=== PATIENT | female | born 1945 | race Caucasian/White ===

== ENCOUNTER 2022-04-21 13:27 | Emergency (ER) | payer MEDICARE, SELFPAY ==
--- NOTE | ~2022-04-21 | CT_ITS ---
Moderate EXAMINATION: CT HEAD WITHOUT CONTRAST CT CERVICAL SPINE WITHOUT CONTRAST CLINICAL INFORMATION: Fall. COMPARISON: None available. TECHNIQUE: Contiguous axial imaging was performed from the skull base to vertex without intravenous administration of contrast. Contiguous axial imaging was performed from the upper chest through the skull base without intravenous administration of contrast. Coronal and sagittal reformats were obtained at the acquisition workstation. This CT examination was performed using dose optimization techniques as appropriate, variously including the following: *Automated exposure control. *Adjustment of mA and/or kV according to patient size (this includes techniques or standardized protocols for targeted exams where dose is matched to indication/reason for exam; i.e. extremities or head). *Use of iterative reconstruction technique. DLP: 1007 mGy-cm FINDINGS: Head: There is no evidence of acute intracranial hemorrhage or edematous territorial infarction. Oneill-white matter differentiation is preserved. A few foci of hypoattenuation in the periventricular and deep white matter are consistent with mild to moderate microangiopathy. Proportional prominence of the ventricles and sulcal spaces without evidence of obstructive hydrocephalus. No abnormal mass effect or midline shift. No extra-axial fluid collections. Calcific atherosclerotic disease of the intracranial internal carotid and vertebral arteries. No hyperdense vessel sign. No acute soft tissue or osseous abnormalities. Moderate mucosal thickening of the paranasal sinuses. The mastoid air cells and middle ear cavities are clear. Advanced left-sided and moderate right-sided degenerative arthropathy of the temporomandibular joints. Cervical Spine: Instrumented anterior fusion of C3-C7. The atlantooccipital and atlantoaxial articulations remain well aligned moderate degenerative arthropathic changes. Straightening of the normal cervical lordosis. Otherwise, there is anatomic alignment of the vertebral bodies and posterior elements. No evidence of acute fracture or subluxation. The vertebral body heights and disc spaces are maintained. There is no prevertebral soft tissue swelling. The thyroid gland and remaining cervical soft tissues are normal in appearance. Calcified pleural plaques along the bilateral lung apices. CT/CT cervical spine wo IV con IMPRESSION: 1. No evidence of acute intracranial hemorrhage or edematous territorial infarction. 2. No evidence of acute fracture or traumatic subluxation of the cervical spine. 3. Mild to moderate underlying microangiopathy and generalized cerebral volume loss. 4. Instrumented anterior fusion of C3-C7. Moderate multilevel degenerative spondyloarthropathy of the cervical spine.
--- NOTE | ~2022-04-21 | XR_ITS ---
EXAMINATION: XR HIP, LEFT , AP pelvis CLINICAL INFORMATION: Fall pain COMPARISON: None available at the time of this dictation. TECHNIQUE: Frontal and lateral views of the hip acquired. , AP pelvis FINDINGS: There is no evidence of acute fracture or dislocation. There are mild degenerative arthritic changes of the hip evident by sclerotic changes of the acetabular roof and narrowing of the joint space. Mild degenerative changes of the symphysis pubis. Mild degenerative changes of the SI joints. Adjacent pubic rami are intact. Surrounding soft tissues are unremarkable. XR/XR hip LT w PEL1V IMPRESSION: No fracture. Degenerative osteoarthritis. Normal radiograph does not entirely exclude the possibility of hip fracture or bone contusions. If there is high clinical suspicion or if patient symptoms persist for longer period, then MRI might be utilized for further investigation.
--- NOTE | 2022-04-21 13:49 | ED.FALL ---
HPI - Fall General Chief Complaint: Fall Stated Complaint: LLE PAIN S/P FALL,+CCOLLAR Time Seen by Provider: 04/21/22 13:34 Source: patient Mode of arrival: EMS History of Present Illness HPI Narrative: 76-year-old female brought in by EMS who had an unwitnessed fall, she has baseline dementia and confusion, patient reports left-sided hip pain but otherwise denies any chest wall pain or abdominal pain on palpation. Related Data Allergies Allergy/AdvReac Type Severity Reaction Status Date / Time Bisphosphonates Allergy Unknown UNKNOWN Unverified 01/05/20 18:57 [BISPHOSPHONATES] carbamazepine [From TEGRETOL] Allergy Unknown UNKNOWN Unverified 01/05/20 18:57 cephalexin [From KEFLEX] Allergy Unknown UNKNOWN Unverified 01/05/20 18:57 clopidogrel [CLOPIDOGREL] Allergy Unknown UNKNOWN Unverified 01/05/20 18:57 cyclobenzaprine Allergy Unknown UNKNOWN Unverified 01/05/20 18:57 [CYCLOBENZAPRINE] ethylenediamine Allergy Unknown UNKNOWN Unverified 01/05/20 18:57 [ETHYLENEDIAMINE] ibuprofen [From MOTRIN] Allergy Unknown UNKNOWN Unverified 01/05/20 18:57 Iodinated Contrast Media Allergy Unknown UNKNOWN Unverified 01/05/20 18:57 [IODINATED CONTRAST- ORAL AND IV DYE] sulfamethoxazole Allergy Unknown UNKNOWN Unverified 01/05/20 18:57 [From BACTRIM] Tricyclic Antidepressants Allergy Unknown UNKNOWN Unverified 01/05/20 18:57 and Tricy [TRICYCLIC COMPOUNDS] trimethoprim [From BACTRIM] Allergy Unknown UNKNOWN Unverified 01/05/20 18:57 Review of Systems Review of Systems: Pertinent positives and negatives as stated in HPI. [facility] Past Medical History Source: nursing notes reviewed Social History Social History Alcohol intake: unknown Smoked in Last 30 Days: No Use of substances other than those prescribed or required for medical reasons: No Advance Directives: Yes Advance Directives Information Provided: No Advance Directives on File: No Physical Exam Vital Signs: Vital Signs: Last Vital Signs Pulse 54 04/21/22 16:06 Resp 14 04/21/22 16:06 BP 125/57 L 04/21/22 16:06 Pulse Ox 100 04/21/22 16:06 O2 Del Method 04/21/22 16:06 BMI result Body Mass Index 24.0 VITAL SIGNS: Reviewed. GENERAL: Well developed, well nourished, in no acute distress. HEAD: Normocephalic/atraumatic, EYES: PERRLA, EOMI intact without pain, no nystagmus/pallor/icterus noted EARS: Ext canals without abnormality, TMs non-bulging and non-erythematous NOSE: Nares patent bilateral OROPHARYNX: no oral lesions noted, posterior pharynx clear NECK: C-collar in place, no midline cervical spine tenderness LUNGS: Normal breath sounds. No adventitious sounds or accessory muscle use. SpO2<100> CARDIOVASCULAR: Regular rate and rhythm without noted murmurs ABDOMEN: Soft, non-tender, non-distended with bowel sounds. PELVIS: Pain at left hip but no noted external rotation or shortening MUSCULOSKELETAL: No tenderness, deformities, or effusions noted on gross inspection. EXTREMITIES: No cyanosis, clubbing or edema. SKIN: Inspection of the skin reveals no rashes NEUROLOGIC: Alert and oriented x 2. Strength and sensation to light touch were grossly intact x 4. Medical Decision Making Medical Decision Making [facility] Narrative: 76-year-old female is here in the ER to be evaluated for and ?unwitnessed fall?. 1736: On review of all investigations, there is no evidence of acute infection and anemia appears to be chronically stable, there are no acute electrolyte or renal derangements, viral testing is negative and CT of the head/C-spine is without acute findings. 1827: Pelvic x-ray is negative for fractures and patient is otherwise discharged back to her facility. Differential Diagnosis Differential Diagnoses: The differential diagnosis associated with the presentation includes I will rule out infection, anemia, electrolyte/renal dysfunction, arrhythmia Lab Data [facility] Lab Attestation statement: I reviewed the patient's lab results. Please see the discussion above Result Diagrams: 04/21/22 14:24 04/21/22 14:24 Labs: Lab Results 04/21/22 04/21/22 04/21/22 Range/Units 14:24 14:24 14:24 WBC 4.0 L (4.8-10.8) X10*3/uL RBC 3.86 L (4.20-5.50) X10*6/uL Hgb 11.9 L (12.0-16.0) g/dl Hct 35.0 L (37.0-47.0) % MCV 90.7 (80.0-98.0) fL MCH 30.8 (27.0-33.0) pg MCHC 34.0 (31.0-35.0) g/dl RDW 12.8 (11.0-16.0) % Plt Count 174 (160-400) X10*3/uL MPV 10.4 (9.4-12.3) fL Immature Gran % (Auto) 0.3 (0.0-0.4) % Neut % (Auto) 44.5 L (45-73) % Lymph % (Auto) 41.0 H (20-40) % [place] % (Auto) 10.4 (2-11) % Eos % (Auto) 3.3 (0-4) % Baso % (Auto) 0.5 (0-2) % Lymph # (Auto) 1.6 (1.2-4.9) X10*3/uL [place] # (Auto) 0.4 (0.1-1.2) X10*3/uL Eos # (Auto) 0.1 (0.0-0.4) X10*3/uL Baso # (Auto) 0.0 (0.0-0.2) X10*3/uL Abs Immat Gran (auto) 0.01 (0.00-0.03) X10*3/uL Absolute Neuts (auto) 1.8 L (2.0-8.3) x10*3/uL Absolute Nucleated RBC 0.000 (0.0-0.012) X10*3/uL Nucleated RBC % (auto) 0.0 (0.0-0.2) /100WBC PT 12.7 (10.0-13.1) SEC INR 1.1 (0.9-1.1) Sodium 143 (135-145) mmol/L Potassium 3.9 (3.3-5.1) mmol/L Chloride 110 H (96-108) mmol/L Carbon Dioxide 26 (22-29) mmol/L Anion Gap 11 L (12-20) BUN 19 H (9-16) mg/dL Creatinine 0.69 (0.5-1.4) mg/dL Estim Creat Clear Calc 58.9 Estimated GFR > 60 Random Glucose 99 (60-115) mg/dL Calcium 8.5 (8.4-10.2) mg/dL Total Bilirubin 0.3 (0.0-1.0) mg/dL AST 14 (5-31) U/L ALT 18 (0-31) U/L Alkaline Phosphatase 52 (39-117) U/L Troponin I High Sens (<3.5-17.0) ng/L Total Protein 5.6 L (6.5-8.0) g/dL Albumin 3.4 L (3.5-5.0) g/dL COVID-19 (PATRICIA) (Negative) COVID-19 Clin Com Influenza Type A (MEGAN) (Negative) Influenza Type B (MEGAN) (Negative) Influenza A & B Note 04/21/22 04/21/22 04/21/22 Range/Units 14:24 14:24 14:24 WBC (4.8-10.8) X10*3/uL RBC (4.20-5.50) X10*6/uL Hgb (12.0-16.0) g/dl Hct (37.0-47.0) % MCV (80.0-98.0) fL MCH (27.0-33.0) pg MCHC (31.0-35.0) g/dl RDW (11.0-16.0) % Plt Count (160-400) X10*3/uL MPV (9.4-12.3) fL Immature Gran % (Auto) (0.0-0.4) % Neut % (Auto) (45-73) % Lymph % (Auto) (20-40) % [place] % (Auto) (2-11) % Eos % (Auto) (0-4) % Baso % (Auto) (0-2) % Lymph # (Auto) (1.2-4.9) X10*3/uL [place] # (Auto) (0.1-1.2) X10*3/uL Eos # (Auto) (0.0-0.4) X10*3/uL Baso # (Auto) (0.0-0.2) X10*3/uL Abs Immat Gran (auto) (0.00-0.03) X10*3/uL Absolute Neuts (auto) (2.0-8.3) x10*3/uL Absolute Nucleated RBC (0.0-0.012) X10*3/uL Nucleated RBC % (auto) (0.0-0.2) /100WBC PT (10.0-13.1) SEC INR (0.9-1.1) Sodium (135-145) mmol/L Potassium (3.3-5.1) mmol/L Chloride (96-108) mmol/L Carbon Dioxide (22-29) mmol/L Anion Gap (12-20) BUN (9-16) mg/dL Creatinine (0.5-1.4) mg/dL Estim Creat Clear Calc Estimated GFR Random Glucose (60-115) mg/dL Calcium (8.4-10.2) mg/dL Total Bilirubin (0.0-1.0) mg/dL AST (5-31) U/L ALT (0-31) U/L Alkaline Phosphatase (39-117) U/L Troponin I High Sens < 3.5 (<3.5-17.0) ng/L Total Protein (6.5-8.0) g/dL Albumin (3.5-5.0) g/dL COVID-19 (PATRICIA) Negative (Negative) COVID-19 Clin Com See Note Influenza Type A (MEGAN) Negative (Negative) Influenza Type B (MEGAN) Negative (Negative) Influenza A & B Note See Note Independent Interpretation I performed an independent interpretation of an: EKG Interpretation: Sinus bradycardia, HR -45, no STEMI, OK/QRS/QTC are within normal limits. Radiology Impression Radiologist Impression: My interpretation is in agreement with the impression of the radiologist regarding imaging studies. External Record Review External record reviewed: Outpatient record and Prior outpatient labs Chronic Conditions Patient?s care impacted by: Other Dementia Critical Care Time Critical Care Time Critical Care Time: Yes Total Critical Care Time: 30 Attestation: I personally attest to this time spent taking care of the patient. Discharge Plan Discharge Clinical Impression: Fall Patient Disposition: Xfer SNF Instructions: Fall Prevention for Older Adults (ED) Additional Instructions: 1. Resume all home medications as prescribed. 2. Follow-up with primary care provider in the next 1-2 days for re-evaluation. Return to the ER for any worsening symptoms. Referrals: Roly Salazar DO [Primary Care Provider] -
--- NOTE | 2022-04-21 13:50 | ECG_ITS ---
Test Reason : FALL Blood Pressure : / mmHG Vent. Rate : 045 BPM Atrial Rate : 045 BPM P-R Int : 178 ms QRS Dur : 084 ms QT Int : 510 ms P-R-T Axes : -28 081 078 degrees QTc Int : 441 ms Sinus bradycardia Otherwise normal ECG When compared with ECG of 12-JUN-2018 20:51, Vent. rate has decreased BY 80 BPM Non-specific change in ST segment in Lateral leads Nonspecific T wave abnormality no longer evident in Inferior leads Referred By: Cori Esteves Electronically Signed By:VINCENT CURTIS
[2022-04-21 14:08] VITALS: BP 146/90; BP 92/37; PULSE 48; PULSE 86; RESP 14; O2SAT 100; O2SAT 97; BMI 24.0
[2022-04-21 14:30] LABS: MANUAL DIFF FLAG NO
[2022-04-21 14:33] LABS: Basophils Percent Auto 0.5 % (0-2); Eosinophils Absolute Auto 0.1 X10*3/uL (0.0-0.4); Eosinophils Percent Auto 3.3 % (0-4); Hemoglobin 11.9 g/dl (12.0-16.0); Imm Gran Abs Auto 0.01 X10*3/uL (0.00-0.03); Imm Gran Pct Auto 0.3 % (0.0-0.4); Lymphocytes Absolute Auto 1.6 X10*3/uL (1.2-4.9); Mean Corpuscular Hemoglobin 30.8 pg (27.0-33.0); Mean Corpuscular Volume 90.7 fL (80.0-98.0); Mean Platelet Volume 10.4 fL (9.4-12.3); Monocytes Absolute Auto 0.4 X10*3/uL (0.1-1.2); Monocytes Percent Auto 10.4 % (2-11); Neutrophils Absolute Auto 1.8 x10*3/uL (2.0-8.3); Neutrophils Percent Auto 44.5 % (45-73); Platelet Count 174 X10*3/uL (160-400); Red Blood Count 3.86 X10*6/uL (4.20-5.50); Red Cell Distribution Width 12.8 % (11.0-16.0)
[2022-04-21 14:37] LABS: INTERNATIONAL NORM RATIO 1.1 (0.9-1.1); Prothrombin Time 12.7 SEC (10.0-13.1)
--- NOTE | 2022-04-21 14:41 | PC.NURSE ---
Patient in c collar denies any midline cervical pain with light palpation. VIVAS with purpose is alert oriented to person place and time is confused to situation. No respiratory distress noted, patient sleeping but is easily aroused with both verbal and tactile stimulation will CTM
[2022-04-21 14:46] LABS: Alanine Aminotransferase 18 U/L (0-31); Albumin Level 3.4 g/dL (3.5-5.0); Alkaline Phosphatase 52 U/L (39-117); Anion Gap 11 (12-20); Aspartate Amino Transferase 14 U/L (5-31); Bilirubin Total 0.3 mg/dL (0.0-1.0); Blood Urea Nitrogen 19 mg/dL (9-16); Calcium 8.5 mg/dL (8.4-10.2); Carbon Dioxide 26 mmol/L (22-29); Chloride 110 mmol/L (96-108); Creatinine Clr Calc Pharmacy 58.9; Estimated Glomerular Filt Rate > 60; Glucose Random 99 mg/dL (60-115); Potassium 3.9 mmol/L (3.3-5.1); Sodium 143 mmol/L (135-145); Total Protein 5.6 g/dL (6.5-8.0)
[2022-04-21 14:51] LABS: COVID-19 Test Negative (Negative); IDNOW Serial# 16C4AD1C
[2022-04-21 14:52] LABS: IDNOW Serial# BCCEAD1C; Influenza A Negative (Negative); Influenza B2 Negative (Negative)
[2022-04-21 14:53] LABS: Troponin-I High Sensitivity < 3.5 ng/L (<3.5-17.0)
--- NOTE | 2022-04-21 15:52 | PC.NURSE ---
Patient sleeping is easily aroused confusion at baseline will CTM
[2022-04-21 16:06] VITALS: BP 125/57; PULSE 54; RESP 14; O2SAT 100
--- NOTE | 2022-04-21 18:56 | PC.NURSE ---
corporate legal secretary to get transportation back to facility
--- NOTE | 2022-04-21 20:42 | PC.NURSE ---
Assumed care of pt at 1915. Pt picked up by [facility] via stretcher to return to SNF. No apparent distress.
== END 2022-04-21 19:30 | disposition skilled nursing facility (03) ==
PROVIDERS: Emergency Provider Student in an Organized Health Care Education/Training Program; PCP Hospitalist
DX: M25.552 Pain in left hip (principal); Z91.81 History of falling; F03.90 Unspecified dementia, unspecified severity, without behavioral disturbance, psychotic disturbance, mood disturbance, and anxiety; Z20.822 Contact with and (suspected) exposure to COVID-19
CPT/HCPCS: 36415; 70450; 72125; 73502; 80053; 84484; 85025; 85610; 87502; 87635; 93005; 99284

== ENCOUNTER 2023-08-24 16:55 | Emergency (ER) | payer MEDICARE, MEDICAID, SELFPAY ==
--- NOTE | ~2023-08-24 | CT_ITS ---
EXAMINATION: CT HEAD WITHOUT CONTRAST CLINICAL INFORMATION: Fall poor historian COMPARISON: CT head from 04/21/2022 TECHNIQUE: Contiguous axial imaging was performed from the skull base to vertex without intravenous administration of contrast. This CT examination was performed using dose optimization techniques as appropriate, variously including the following: *Automated exposure control *Adjustment of mA and/or kV according to patient size (this includes techniques or standardized protocols for targeted exams where dose is matched to indication/reason for exam; i.e. extremities or head) *Use of iterative reconstruction technique DLP: 610 mGy-cm FINDINGS: There is no evidence of acute intracranial hemorrhage or territorial infarction. Chronic white matter small vessel ischemic changes. Cerebral atrophy with commensurate ventricular changes. No abnormal mass effect or midline shift is seen. Oneill to white matter differentiation is well preserved. No extra-axial fluid collections are identified. The ventricles are normal in size. There is no abnormal attenuation within the brain parenchyma. Soft tissue swelling overlying the left frontal bone without underlying bony defect identified. The osseous structures and soft tissues are normal. The mastoid air cells and visualized portions of the paranasal sinuses are well aerated. Atherosclerotic calcifications. CT/CT cervical spine wo IV con IMPRESSION: 1. No acute intracranial pathology. 2. Chronic white matter small vessel ischemic changes. 3. Soft tissue swelling overlying the left frontal bone without underlying bony defect identified. EXAMINATION: Noncontrast CT scan of the cervical spine. INDICATION: Fall COMPARISON: CT cervical spine from 04/21/2022 TECHNIQUE: Helical, multidetector axial images were obtained from the occiput to the upper thorax. Coronal and sagittal reformats of the cervical spine were provided for interpretation. DLP: 251 mGy-cm FINDINGS: Status post anterior cervical fusion of C3-C7. Spinal hardware grossly intact. Straightening the normal cervical curvature. Multilevel degenerative changes. No acute fractures or dislocations of the cervical spine are seen. Anatomic alignment and positioning of the vertebral bodies and posterior elements is noted. The atlantoaxial joint and craniovertebral articulations are normal without evidence of subluxation. There is no prevertebral soft tissue swelling. Biapical lung scarring with calcifications. Visualized thyroid gland is unremarkable. IMPRESSION: 1. No acute visible fracture or dislocation. 2. Status post anterior cervical fusion of C3-C7. Spinal hardware grossly intact. 3. Straightening of the normal cervical curvature. 4. Multilevel degenerative changes.
[2023-08-24 17:00] VITALS: BP 120/56; PULSE 70; O2SAT 97
--- NOTE | 2023-08-24 17:10 | ECG_ITS ---
Test Reason : FALLS Blood Pressure : / mmHG Vent. Rate : 069 BPM Atrial Rate : 069 BPM P-R Int : 172 ms QRS Dur : 078 ms QT Int : 416 ms P-R-T Axes : 084 079 070 degrees QTc Int : 445 ms Normal sinus rhythm Possible Left atrial enlargement Borderline ECG When compared with ECG of 21-APR-2022 13:57, Vent. rate has increased BY 24 BPM Referred By: Мария Zaldivar Electronically Signed By:Alexis Hall
--- NOTE | 2023-08-24 17:12 | ED_ITS ---
HPI - General Adult General Chief complaint: Fall Stated complaint: UNWIT FALL W/ HEADSTRIKE Time Seen by Provider: 08/24/23 16:58 Source: patient and EMS Mode of arrival: EMS Limitations: other (Dementia) History of Present Illness HPI narrative: Patient comes in the emergency room from [facility]. Patient had an unwitnessed fall earlier today. According to the patient, patient was standing, she tried leaning down to picker tender helper something from the floor, lost her balance, hit her head against the wall on her way down. Landed on the floor. Patient complaining of localized headache and then ecchymosis. Patient states she has not sure if he has neck pain. Nothing else hurts. Patient is not on blood thinners. Related Data Allergies Allergy/AdvReac Type Severity Reaction Status Date / Time Bisphosphonates Allergy Unknown UNKNOWN Verified 08/24/23 17:15 [BISPHOSPHONATES] carbamazepine [From TEGRETOL] Allergy Unknown UNKNOWN Verified 08/24/23 17:15 cephalexin [From KEFLEX] Allergy Unknown UNKNOWN Verified 08/24/23 17:15 clopidogrel [CLOPIDOGREL] Allergy Unknown UNKNOWN Verified 08/24/23 17:15 cyclobenzaprine Allergy Unknown UNKNOWN Verified 08/24/23 17:15 [CYCLOBENZAPRINE] ethylenediamine Allergy Unknown UNKNOWN Verified 08/24/23 17:15 [ETHYLENEDIAMINE] ibuprofen [From MOTRIN] Allergy Unknown UNKNOWN Verified 08/24/23 17:15 Iodinated Contrast Media Allergy Unknown UNKNOWN Verified 08/24/23 17:15 [IODINATED CONTRAST- ORAL AND IV DYE] sulfamethoxazole Allergy Unknown UNKNOWN Verified 08/24/23 17:15 [From BACTRIM] Tricyclic Antidepressants Allergy Unknown UNKNOWN Verified 08/24/23 17:15 and Tricy [TRICYCLIC COMPOUNDS] trimethoprim [From BACTRIM] Allergy Unknown UNKNOWN Verified 08/24/23 17:15 [facility] Social History Social History Alcohol intake: unknown Advance Directives: Yes Advance Directives on File: Yes Advance Directives Date on File: 08/24/23 Do you have a plan to hurt others: No Plan Physical Exam ED Vital Signs: Vital Signs - 24 hr 08/24/23 17:13 Temperature 97.1 F Pulse Rate 71 Respiratory Rate 16 Blood Pressure 114/51 L Pulse Oximetry 99 Oxygen Delivery Method Room Air BMI result Body Mass Index 20.6 Const Other: Appearance: Alert. Oriented x1. No acute distress. Eyes: Pupils equal, round and reactive to light. ENT: Pharynx normal. Neck: Neck on C-spine precautions, no palpable step-offs, no pain to palpation per patient CVS: Normal heart rate and rhythm. Pulses normal. Normal S1 and S2 Respiratory: No respiratory distress. Breath sounds normal. No Wheezing. No rales Abdomen: Soft and nontender. No rigidity. No distention. Skin: Skin warm and dry. Normal skin color. Normal skin turgor. Ecchymosis on the left anterior aspect of the scalp, no laceration Extremities: No lower extremity edema. No Lacerations. No Rash Neuro: Oriented X1. No motor deficit. No sensory deficit. Moving all extremities. No slurred speech. CN 2 through 12 grossly intact Psych: calm, cooperative, normal affect Medical Decision Making Medical Decision Making [facility] Narrative: -my interpretation of labs: Hematology and chemistry at baseline, urinalysis negative for UTI -my interpretation of CT scan of the head: No intracranial bleed. Cervical spine has chronic anterior fusion C3-C7 -overall patient states he feels better. Differential Diagnosis Differential Diagnoses: The differential diagnosis associated with the presentation includes (UTI, contusion, concussion, intracranial bleed) Admission/Observation Consideration of admission/observation: Escalation of care including admission/observation considered (Given patient's initial presentation, observation considered) Lab Data [facility] Lab Attestation statement: I reviewed the patient's lab results. 08/24/23 17:59 08/24/23 17:59 Labs: Lab Results 08/24/23 08/24/23 Range/Units 17:59 23:15 WBC 6.7 (4.8-10.8) X10*3/uL RBC 3.66 L (4.20-5.50) X10*6/uL Hgb 11.7 L (12.0-16.0) g/dl Hct 33.6 L (37.0-47.0) % MCV 91.8 (80.0-98.0) fL MCH 32.0 (27.0-33.0) pg MCHC 34.8 (31.0-35.0) g/dl RDW 13.1 (11.0-16.0) % Plt Count 199 (160-400) X10*3/uL MPV 10.2 (9.4-12.3) fL Immature Gran % (Auto) 0.3 (0.0-0.4) % Neut % (Auto) 62.7 (45-73) % Lymph % (Auto) 23.5 (20-40) % [place] % (Auto) 10.9 (2-11) % Eos % (Auto) 2.2 (0-4) % Baso % (Auto) 0.4 (0-2) % Lymph # (Auto) 1.6 (1.2-4.9) X10*3/uL [place] # (Auto) 0.7 (0.1-1.2) X10*3/uL Eos # (Auto) 0.2 (0.0-0.4) X10*3/uL Baso # (Auto) 0.0 (0.0-0.2) X10*3/uL Abs Immat Gran (auto) 0.02 (0.00-0.03) X10*3/uL Absolute Neuts (auto) 4.2 (2.0-8.3) x10*3/uL Absolute Nucleated RBC 0.000 (0.0-0.012) X10*3/uL Nucleated RBC % (auto) 0.0 (0.0-0.2) /100WBC Sodium 140 (135-145) mmol/L Potassium 4.4 (3.3-5.1) mmol/L Chloride 105 (96-108) mmol/L Carbon Dioxide 25 (22-29) mmol/L Anion Gap 14 (12-20) BUN 33 H (9-16) mg/dL Creatinine 0.78 (0.5-1.4) mg/dL Estim Creat Clear Calc 51.8 Estimated GFR > 60 Random Glucose 100 (60-115) mg/dL Calcium 9.4 D (8.4-10.2) mg/dL Troponin I High Sens < 2.7 (<3.5-17.0) ng/L Urine Color Yellow Urine Appearance Clear Urine pH 5.5 (5.0-9.0) Ur Specific [place] 1.020 (1.005-1.025) Urine Protein Negative (Neg-Trace) mg/dL Urine Glucose (UA) Negative (Negative) mg/dL Urine Ketones Negative (Negative) mg/dL Urine Blood Negative (Negative) Urine Nitrite Negative (Negative) Ur Leukocyte Esterase Negative (Negative) Independent Interpretation I performed an independent interpretation of an: EKG and CT Scan Interpretation: My interpretation of EKG: Sinus rhythm, heart rate 69, no ST segment depression or elevation, no T-wave inversion, QTC 445 Radiology Impression Discussion of test interpretation with radiology: I have reviewed the radiologist's reading. Radiologist Impression: FINDINGS: There is no evidence of acute intracranial hemorrhage or territorial infarction. Chronic white matter small vessel ischemic changes. Cerebral atrophy with commensurate ventricular changes. No abnormal mass effect or midline shift is seen. Oneill to white matter differentiation is well preserved. No extra-axial fluid collections are identified. The ventricles are normal in size. There is no abnormal attenuation within the brain parenchyma. Soft tissue swelling overlying the left frontal bone without underlying bony defect identified. The osseous structures and soft tissues are normal. The mastoid air cells and visualized portions of the paranasal sinuses are well aerated. Atherosclerotic calcifications. CT/CT head/brain wo IV con IMPRESSION: 1. No acute intracranial pathology. 2. Chronic white matter small vessel ischemic changes. 3. Soft tissue swelling overlying the left frontal bone without underlying bony defect identified. EXAMINATION: Noncontrast CT scan of the cervical spine. INDICATION: Fall COMPARISON: CT cervical spine from 04/21/2022 TECHNIQUE: Helical, multidetector axial images were obtained from the occiput to the upper thorax. Coronal and sagittal reformats of the cervical spine were provided for interpretation. DLP: 251 mGy-cm FINDINGS: Status post anterior cervical fusion of C3-C7. Spinal hardware grossly intact. Straightening the normal cervical curvature. Multilevel degenerative changes. No acute fractures or dislocations of the cervical spine are seen. Anatomic alignment and positioning of the vertebral bodies and posterior elements is noted. The atlantoaxial joint and craniovertebral articulations are normal without evidence of subluxation. There is no prevertebral soft tissue swelling. Biapical lung scarring with calcifications. Visualized thyroid gland is unremarkable. IMPRESSION: 1. No acute visible fracture or dislocation. 2. Status post anterior cervical fusion of C3-C7. Spinal hardware grossly intact. 3. Straightening of the normal cervical curvature. 4. Multilevel degenerative changes. Discharge Plan Discharge Clinical Impression: Fall, Contusion Patient Disposition: Home, Self-Care Instructions: Fall Prevention (ED) Print Language: Tajik
[2023-08-24 17:13] VITALS: BP 114/51; PULSE 71; RESP 16; TEMP 36.2; O2SAT 99; BMI 20.6
[2023-08-24 18:08] LABS: MANUAL DIFF FLAG NO
[2023-08-24 18:09] LABS: Basophils Percent Auto 0.4 % (0-2); Eosinophils Absolute Auto 0.2 X10*3/uL (0.0-0.4); Eosinophils Percent Auto 2.2 % (0-4); Hematocrit 33.6 % (37.0-47.0); Hemoglobin 11.7 g/dl (12.0-16.0); Imm Gran Abs Auto 0.02 X10*3/uL (0.00-0.03); Imm Gran Pct Auto 0.3 % (0.0-0.4); Lymphocytes Absolute Auto 1.6 X10*3/uL (1.2-4.9); Lymphocytes Percent Auto 23.5 % (20-40); Mean Corpuscular HGB Conc 34.8 g/dl (31.0-35.0); Mean Corpuscular Volume 91.8 fL (80.0-98.0); Mean Platelet Volume 10.2 fL (9.4-12.3); Monocytes Absolute Auto 0.7 X10*3/uL (0.1-1.2); Monocytes Percent Auto 10.9 % (2-11); Neutrophils Absolute Auto 4.2 x10*3/uL (2.0-8.3); Neutrophils Percent Auto 62.7 % (45-73); Platelet Count 199 X10*3/uL (160-400); Red Blood Count 3.66 X10*6/uL (4.20-5.50); Red Cell Distribution Width 13.1 % (11.0-16.0); White Blood Count 6.7 X10*3/uL (4.8-10.8)
[2023-08-24 18:23] LABS: Anion Gap 14 (12-20); Blood Urea Nitrogen 33 mg/dL (9-16); Calcium 9.4 mg/dL (8.4-10.2); Carbon Dioxide 25 mmol/L (22-29); Chloride 105 mmol/L (96-108); Creatinine Clr Calc Pharmacy 51.8; Estimated Glomerular Filt Rate > 60; Glucose Random 100 mg/dL (60-115); Potassium 4.4 mmol/L (3.3-5.1); Sodium 140 mmol/L (135-145)
[2023-08-24 18:36] LABS: Troponin-I High Sensitivity < 2.7 ng/L (<3.5-17.0)
[2023-08-24 23:23] LABS: Appearance Urine Clear; Color Urine Yellow; Glucose Urine UA Negative (Negative); Leukocyte Esterase Urine Negative (Negative); Nitrite Urine Negative (Negative); PH 5.5 (5.0-9.0); Urine Blood Negative (Negative); Urine Ketones Negative (Negative); Urine Protein Negative (Neg-Trace)
[2023-08-25 02:44] VITALS: BP 120/60; PULSE 68; RESP 16; TEMP 36.2; O2SAT 99
== END 2023-08-25 02:46 | disposition home or self-care (01) ==
PROVIDERS: Emergency Provider Emergency Medicine; PCP Hospitalist
DX: S00.93XA Contusion of unspecified part of head, initial encounter (principal); W18.30XA Fall on same level, unspecified, initial encounter; Y93.89 Activity, other specified; Y92.89 Other specified places as the place of occurrence of the external cause; Y99.9 Unspecified external cause status; R51.9 Headache, unspecified
CPT/HCPCS: 36415; 51701; 70450; 72125; 80048; 81003; 84484; 85025; 93005; 99284

== ENCOUNTER → 2023-08-24 17:10 | Outpatient (BNV) | payer MEDICARE, MEDICAID, SELFPAY | PROVIDERS: Emergency Provider Emergency Medicine; PCP Hospitalist; Visit Provider Internal Medicine Cardiovascular Disease | DX: R94.31 Abnormal electrocardiogram [ECG] [EKG] (principal) | CPT/HCPCS: 93010 ==